=== PATIENT | male | born 1955 | race Caucasian/White ===

== ENCOUNTER → 2018-02-10 07:28 | Outpatient (CLI) | payer BC, SELFPAY ==
--- NOTE | 2018-02-10 08:00 | PET_ITS ---
EXAMINATION: FDG PET CT INDICATIONS: A 62-year-old male with reported history of carcinoma of the lung presenting for restaging examination. COMPARISON EXAMINATION: CT of the chest report dated 01/20/18. INDEX LESION SIZE SUV INTERPRETATION Left lower posteromedial lung zone, left lower lobe 15.8 mm (frame 191) 3.2 Fulfills quantitative criteria for viable neoplasm Left mid posterior lung field, left lower lobe (n = 2) 33.9 mm largest (frame 237) 3.6 (max) Fulfills quantitative criteria for viable neoplasm Left upper anterior hemithorax, left upper lobe 31.5 mm (frame 245) 2.4 Fulfills borderline quantitative criteria for viable neoplasm NON-INDEX LESION SIZE SUV INTERPRETATION Left parotid space 5.1 mm (frame 295) 2.3 Quantitative criteria for viable neoplasm are not fulfilled, correlation with CT of the neck with intravenous contrast may be of benefit secondary to the quantitative degree of uptake TECHNIQUE: Following the intravenous administration of 14.3 mCi of F-18 deoxyglucose via the right antecubital fossa, multiplanar image acquisitions of the neck, chest, abdomen and pelvis to level of mid thigh, obtained at one hour post radiopharmaceutical administration contemporaneously interpreted with the current CT of the neck, chest, abdomen and pelvis to level of mid thigh, dated 02/10/[address] of the chest report dated 01/20/18 reveal: SERUM GLUCOSE LEVEL: 84 mg/dl. HEIGHT: 73 inches. WEIGHT: 231 lbs. FINDINGS: 1. A nodular focus of enhanced glucose metabolism is defined in the left lower medial hemithorax pulmonary parenchyma, left lower lobe generating a calculated maximum standard uptake value of 2.3. The maximal axial diameter of the corresponding parenchymal density on review of CT of the thorax dated 02/10/18 is 15.8 mm (transverse). 2. Heterogeneous increased radiopharmaceutical concentration is defined in the left mid posterior hemithorax pulmonary parenchyma, left lower lobe in two separate locations, nodular presentations generating a calculated maximum standard uptake value of 3.6. The maximal axial diameter of the largest individual metabolic, morphologic abnormality is 33.9 mm (transverse). 3. There is a focus of increased glucose concentration visualized in the left upper anterior hemithorax pulmonary parenchyma, left upper lobe generating a calculated maximum standard uptake value of 2.4. Borderline quantitative criteria for viable neoplasm are fulfilled. The maximal axial diameter of the corresponding parenchymal density on review of CT of the thorax dated 02/10/18 is 31.5 mm (AP). 4. Normal physiologic distribution of the radiopharmaceutical is apparent in the hepatic (3.0) and splenic parenchyma, both renal units, bladder and visualized intestinal tract. There is uniform distribution of the radiopharmaceutical concentration compared on the cerebellar hemispheres and cerebral cortex. Diffuse intestinal tract activity is noted throughout all four quadrants of the abdominal-pelvic retroperitoneum, mesentery consistent with normal physiologic distribution of the radiopharmaceutical. Asymmetric increased glucose concentration is observed in the left parotid space generating a calculated maximum standard uptake value of 2.3. The maximal axial diameter of the metabolic, morphologic abnormality on review of CT of the neck dated 02/10/18 is 5.[address] findings are as follows. CHEST: There are no additional parenchymal densities-nodules noted in the right-left hemithorax manifesting quantitatively significant increased glucose metabolism. Coronary arterial calcification is observed. Atherosclerotic calcification is defined in the thoracic aorta without evidence of dilatation, aneurysm formation. Scattered mediastinal and bilateral axillary soft tissue densities are non-glucose avid. ABDOMEN AND PELVIS: Atherosclerotic calcification is defined in the abdominal aorta without evidence of dilatation, aneurysm formation. Pelvic arterial calcification is observed. Fat-containing bilateral inguinal hernias are noted. Right-left inguinal soft tissue densities are ametabolic. SKELETAL: Degenerative changes defined in the cervical, thoracic and lumbar spine demonstrate no evidence for glucose hypermetabolism. Diffuse demineralization is demonstrated. PET/PET/CT Tumor Base -Thigh Subs IMPRESSION: 1. ABNORMAL EXAMINATION INDICATIVE OF MALIGNANT VIABLE NEOPLASM. 2. Increased glucose concentration demonstrated in several locations within the left lower lobe fulfills quantitative criteria for viable neoplasm. (Garcia et al, Annals of Internal Medicine, 138:724, 2003). 3. Facilitated glucose uptake manifest in the left upper anterior lung zone, left upper lobe fulfills borderline quantitative criteria for viable neoplasm. 4. The increase in fluorine labeled glucose concentration observed in the left parotid space may be further investigated with CT of the neck with intravenous contrast secondary to the quantitative degree of uptake. Electronic Signature Meet Ellis D.O. Electronically Signed: Meet Ellis DO at 19:25 EDT Tel , Service support ,
== END ==
PROVIDERS: Family Provider Family Medicine; PCP Family Medicine; Visit Provider Internal Medicine Hematology & Oncology
DX: C34.92 Malignant neoplasm of unspecified part of left bronchus or lung (principal); C77.1 Secondary and unspecified malignant neoplasm of intrathoracic lymph nodes; R91.8 Other nonspecific abnormal finding of lung field
CPT/HCPCS: 78815; A9552; A4216

== ENCOUNTER → 2018-07-28 07:35 | Outpatient (CLI) | payer BC, SELFPAY ==
--- NOTE | 2018-07-28 08:00 | PET_ITS ---
EXAMINATION: FDG PET CT INDICATIONS: A 63-year-old male with reported history of carcinoma of the lung presenting for restaging examination. COMPARISON EXAMINATION: Prior FDG PET study dated 02/10/19. INDEX LESION SIZE SUV INTERPRETATION PERSISTENT: Left lower posteromedial lung field, left lower lobe 21.8 mm (frame 179) compared to 15.8 mm, 02/10/18 5.4 compared to 3.2, 02/10/18 Fulfills quantitative criteria for viable neoplasm, interim metabolic progression NEW: Left infrahilar region 16.8 mm (frame 198) 4.3 Fulfills quantitative criteria for viable neoplasm PERSISTENT: Left mid posterior hemithorax pulmonary parenchyma 30.1 mm (frame 219) compared to 33.9 mm, 02/10/18 2.7 compared to 3.6, 02/10/18 Fulfills quantitative criteria for viable neoplasm, interim metabolic improvement ? quantitative partial metabolic response if applicable NON-INDEX LESION SIZE SUV INTERPRETATION NEW: Right upper hemithorax pulmonary parenchyma, corresponding linear density on CT 07/28/18 3.8 (max) Most consistent with inflammatory process-pneumonitis TECHNIQUE: Following the intravenous administration of 14.25 mCi of F-18 deoxyglucose via the left antecubital fossa, multiplanar image acquisitions of the neck, chest, abdomen and pelvis to level of mid thigh, obtained at one hour post radiopharmaceutical administration contemporaneously interpreted with the current CT of the neck, chest, abdomen and pelvis to level of mid thigh, dated 07/28/18 via coregistration and prior FDG PET study dated 02/10/18 reveal: SERUM GLUCOSE LEVEL: 99 mg/dl. HEIGHT: 73 inches. WEIGHT: 244 lbs. FINDINGS: 1. Redefined increased glucose metabolism is noted in the left lower posteromedial lung field, left lower lobe generating a current calculated maximum standard uptake value of 5.4 compared to 3.2 defined on the FDG PET study dated 02/10/18. The maximal axial diameter of the corresponding parenchymal density on review of CT of the thorax dated 07/28/18 is 21.8 mm (transverse). 2. Newly identified increased FDG uptake is demonstrated in the left infrahilar region rendering a calculated maximum standard uptake value of 4.3. The maximal axial diameter of the corresponding metabolic, morphologic abnormality on review of CT of the thorax dated 07/28/18 is 16.8 mm (transverse). 3. Redemonstrated heterogeneous facilitated radiopharmaceutical concentration is noted in the left upper posteromedial lung field rendering a current calculated maximum standard uptake value of 2.7 compared to 3.6 defined on the FDG PET study dated 02/10/18. The maximal axial diameter of the metabolic, morphologic abnormality on review of CT of the thorax dated 07/28/18 is 30.1 mm (transverse). 4. Several nodular foci of increased glucose metabolism are manifest in the right upper hemithorax pulmonary parenchyma, right upper lobe superimposed on heterogeneous facilitated uptake. The calculated maximum standard uptake value is 3.8. Uptake appears to correlate with primarily linear density on review of CT of the thorax dated 07/28/18. 5. Normal physiologic distribution of the radiopharmaceutical is apparent in the hepatic (3.3/3.0) and splenic parenchyma, both renal units, bladder and visualized intestinal tract. There is uniform distribution of the radiopharmaceutical concentration defined in the visualized cerebellar hemispheres and cerebral cortical structures.? Diffuse intestinal tract activity is noted throughout all four quadrants of the abdominal-pelvic retroperitoneum, mesentery consistent with normal physiologic distribution of the radiopharmaceutical. The prior defined morphologic-anatomic changes noted on CT of the neck, chest, abdomen and pelvis manifest on the FDG PET CT study dated 02/10/18 are essentially unchanged on the present examination. PET/PET/CT Tumor Base -Thigh Subs IMPRESSION: 1. ABNORMAL EXAMINATION INDICATIVE OF MALIGNANT VIABLE NEOPLASM. 2. Increased glucose concentration redemonstrated in the left lower posteromedial lung field, left lower lobe fulfills quantitative criteria for viable neoplasm. (Maria Fernanda et al, Journal of Nuclear Medicine 43:302 P, 2002). 3. Facilitated labeled glucose metabolism newly apparent in the left infrahilar region fulfills quantitative criteria for malignant transformation. (Vishal et al, Journal of Clinical Oncology 16:2142, 1998). 4. Enhanced FDG uptake persistently noted in the left mid posterior lung field, left lower lobe continues to fulfill quantitative criteria for viable neoplasm. 5. Increased radiotracer uptake visualized in the right upper hemithorax pulmonary parenchyma, right upper lobe corresponding to primarily linear density on review of CT of the chest dated 07/28/18 likely represents an inflammatory process-pneumonitis. 6. Overall, compared to the prior FDG PET study dated 02/10/18, there is an apparent mixed response to systemic cytotoxic therapeutic intervention to include overall metabolic progression of defined viable neoplastic disease to include the left lower posteromedial lung zone-left lower lobe, left infrahilar regions. Persistent uptake noted in the left mid posterior lung field, left lower lobe demonstrates an interval quantitative partial metabolic response if applicable. Electronic Signature Meet Ellis D.O. Electronically Signed: Meet Ellis DO at 23:31 EDT Tel , Service support ,
== END ==
PROVIDERS: Family Provider Family Medicine; PCP Family Medicine; Visit Provider Internal Medicine Hematology & Oncology
DX: C34.12 Malignant neoplasm of upper lobe, left bronchus or lung (principal); R91.8 Other nonspecific abnormal finding of lung field; C77.1 Secondary and unspecified malignant neoplasm of intrathoracic lymph nodes
CPT/HCPCS: 78815; A9552

== ENCOUNTER → 2019-03-30 10:59 | Outpatient (REF) | payer BC, SELFPAY | LOC: CVS 10:59 | PROVIDERS: Family Provider Family Medicine; PCP Family Medicine; Referring Provider Physician Assistant Medical; Visit Provider Physician Assistant Medical | DX: R55 Syncope and collapse (principal) | CPT/HCPCS: 93270 ==

== ENCOUNTER → 2019-06-10 08:47 | Outpatient (CLI) | payer BC, SELFPAY ==
[2019-05-20 08:51] VITALS: BMI 32.1
--- NOTE | 2019-06-10 08:49 | ECHOD_ITS ---
Reason For Study: Murmur Procedure Myocardial strain analysis was performed in this exam to aid in the assessment of cardiac function. This was a 2D Doppler, Color Flow transthoracic echocardiogram. Exam performed in department. Left Ventricle Normal LV size. Mild concentric left ventricular hypertrophy. Left ventricular systolic function is normal. The estimated ejection fraction is 60 %. Stage 2 diastolic dysfunction. No regional wall motion abnormalities noted. Right Ventricle Normal RV size. Normal systolic function. Atria The left atrium is mildly enlarged. Normal right atrium. Tricuspid Valve Normal tricuspid valve. Aortic Valve Trisinus/trileaflet aortic valve. Mild focal aortic valve calcification. Peak aortic valve gradient 37 mmHg. Mean aortic valve gradient 18 mmHg. Mild aortic stenosis. Pulmonic Valve Normal pulmonic valve. Great Vessels Normal aortic root. The pulmonary artery is normal size. Normal inferior vena cava. Pericardium/Pleural No pericardial effusion. MMode/2D Measurements & Calculations LVIDd: 5.1 cm IVSd: 1.2 cm LVOT diam: 2.0 cm LVIDs: 3.1 cm LVPWd: 1.2 cm LVOT area: 3.2 cm2 RVDd: 4.1 cm FS: 39.8 % Ao root diam: 3.6 cm LAV(MOD-bp): 59.2 ml LA A4 area: 20.5 cm2 LA dimension: 3.3 cm LAV(MOD-bp) Indexed: 25.5 ml/m2 LAV(MOD-sp2): 67.8 ml LAV(MOD-sp4): 49.7 ml RA A4 area: 19.5 cm2 Time Measurements MV dec time: 0.33 sec Doppler Measurements & Calculations MV E max antonio: 76.8 cm/sec MV V2 max: 99.2 cm/sec MV P1/2t max antonio: 97.3 cm/sec MV A max antonio: 54.2 cm/sec MV max P.9 mmHg MV P1/2t: 102.7 msec MV E/A: 1.4 MV V2 mean: 44.9 cm/sec MV dec slope: 277.4 cm/sec2 MV mean P.0 mmHg MV V2 VTI: 42.4 cm MVA(P1/2t): 2.1 cm2 MVA(VTI): 2.3 cm2 Ao V2 max: 307.2 cm/sec LV V1 max: 132.4 cm/sec SV(LVOT): 99.5 ml Ao max P.8 mmHg LV V1 max P.0 mmHg Ao V2 mean: 198.6 cm/sec LV V1 mean P.2 mmHg Ao mean P.5 mmHg LV V1 mean: 80.4 cm/sec Ao V2 VTI: 72.4 cm LV V1 VTI: 31.0 cm HONG(I,D): 1.4 cm2 HONG(V,D): 1.4 cm2 PA V2 max: 107.9 cm/sec Interpretation Summary Normal LV size. Mild concentric left ventricular hypertrophy. Left ventricular systolic function is normal. The estimated ejection fraction is 60 %. Mild aortic stenosis. Stage 2 diastolic dysfunction. The global longitudinal strain = -21.4 % (normal). Ordering Physician: Vasyl Devlin Referring Physician: MD Mesfin Genaro Performed By: Yayo Ann RCS
== END ==
PROVIDERS: Family Provider Family Medicine; PCP Family Medicine; Referring Provider Internal Medicine Cardiovascular Disease; Visit Provider Internal Medicine Cardiovascular Disease
DX: I35.0 Nonrheumatic aortic (valve) stenosis (principal)
CPT/HCPCS: 93306

== ENCOUNTER → 2019-06-12 08:53 | Outpatient (CLI) | payer BC, SELFPAY ==
[2019-05-20 08:51] VITALS: BMI 32.1
--- NOTE | 2019-06-12 08:55 | CDU_ITS ---
Reason For Study: STENOSIS Rt. Velocities/BP Lt. Velocities/BP Prox CCA 98/25 cm/sec. Prox CCA 93/28 cm/sec. Mid CCA 56/20 cm/sec. Mid CCA 96/28 cm/sec. Dist CCA 41/13 cm/sec. Dist CCA 101/28 cm/sec. Prox ICA 242/64 cm/sec. Prox ICA 101/28 cm/sec. Mid ICA 166/42 cm/sec. Mid ICA 90/31 cm/sec. Dist ICA 116/33 cm/sec. Dist ICA 75/26 cm/sec. Rt. ICA/CCA = 2.5. Lt. ICA/CCA = 1.0. Prox ECA 302/48 cm/sec. Prox ECA 132/23 cm/sec. Rt. Vert. 101/38 cm/sec. Lt. Vert. 54/26 cm/sec. Right Extracranial There is heterogeneous, irregular atherosclerotic plaque noted in the right common carotid artery. There is heterogeneous, irregular atherosclerotic plaque noted in the right internal carotid artery. There is heterogeneous, irregular atherosclerotic plaque noted in the right external carotid artery. Antegrade flow is noted in the right vertebral artery. There is heterogeneous, irregular atherosclerotic plaque noted in the right bulb. Left Extracranial There is heterogeneous, irregular atherosclerotic plaque noted in the left common carotid artery. There is heterogeneous, irregular atherosclerotic plaque noted in the left internal carotid artery. There is heterogeneous, irregular atherosclerotic plaque noted in the left external carotid artery. Antegrade flow is noted in the left vertebral artery. There is heterogeneous, irregular atherosclerotic plaque noted in the left bulb. Procedure Carotid Duplex [id number]. Exam performed in department. Interpretation Summary Moderate (50-69%) stenosis right extracranial internal carotid. Mild (<50%) stenosis left extracranial internal carotid. Flow within the vertebral arteries is antegrade bilaterally. Ordering Physician: Neri Washington Referring Physician: VIANEY PEREZ Performed By: Swati Newman RDCS, RVT
== END ==
PROVIDERS: Family Provider Family Medicine; PCP Family Medicine; Referring Provider Surgery Vascular Surgery; Visit Provider Surgery Vascular Surgery
DX: I65.23 Occlusion and stenosis of bilateral carotid arteries (principal)
CPT/HCPCS: 93880

== ENCOUNTER 2019-08-29 11:58 | Emergency (ER) | payer MEDICARE, OTHER, SELFPAY ==
[2019-06-26 12:50] VITALS: BMI 32.5
[2019-08-29 11:59] VITALS: BP 90/59; PULSE 67; RESP 13; TEMP 36.1; O2SAT 99; BMI 33.2
--- NOTE | 2019-08-29 12:03 | CT_ITS ---
We are attempting to reach an attending provider to discuss findings. An addendum with communication details will be sent when the communication is complete. STUDY: CT BRAIN WITHOUT CONTRAST REASON FOR EXAM: Male, 64 years old. CVA, left sided weakness, unable to move left arm, weakness on left from prior CVA-worse today. RADIATION DOSAGE (If Supplied By Facility): CTDIvol = ( 44.99 ) mGy, DLP = ( 829.85 ) mGycm TECHNIQUE: Transaxial CT imaging of the brain was performed without administration of intravenous contrast material. Individualized dose optimization techniques were used for this CT. COMPARISON: None. FINDINGS: There is cerebral atrophy with widening of the extra-axial spaces and ventricular dilatation. There are areas of decreased attenuation within the white matter tracts of the supratentorial brain, consistent with microvascular disease changes. There is a small area of right frontal encephalomalacia and gliosis, consistent with prior insult. There is no intracranial hemorrhage. There are no findings of an acute ischemic infarction. There is mucoperiosteal inflammatory disease of the paranasal sinuses consistent with mild chronic sinusitis. CT/Brain/Head without Contrast IMPRESSION: Chronic involutional changes of the brain. Chronic right frontal infarct. Electronically Signed: Rosalba Hebert MD at 12:32 EDT Tel , Service support ,
--- NOTE | 2019-08-29 12:03 | EKG12_ITS ---
Test Reason : STROKE ALERT Blood Pressure : / mmHG Vent. Rate : 057 BPM Atrial Rate : 057 BPM P-R Int : 140 ms QRS Dur : 092 ms QT Int : 428 ms P-R-T Axes : 041 067 053 degrees QTc Int : 416 ms Sinus bradycardia with sinus arrhythmia Otherwise normal ECG Confirmed by OLGA SANCHEZ, FAITH ([id number]), newspaper editor GILES WHYTE ([id number]) on 08/31/2019 9:49:50 AM Referred By: JIGNESH Confirmed By:FAITH ESPINOZA MD
[2019-08-29 12:09] LABS: Absolute Lymphocyte Count 1.69 X10^3/uL (0.83-4.51); Absolute Neutrophil Count 7.8 X10^3/uL (2.0-7.7); Basophil# 0.03 X10^3/uL; Basophil% 0.3 % (0-1); Eosinophils% 2.8 % (0-5); Hemoglobin 10.6 g/dL (13.0-16.5); Lymphocyte # 1.69 X10^3/ul (4.0); Lymphocyte % 15.8 % (19-41); Mean Corp Hgb Conc 31.2 g/dL (32-36); Mean Corpuscular Hgb 28.3 pg (27.0-32.0); Mean Corpuscular Volume 90.7 fL (80-94); Monocyte# 0.76 X10^3/uL; Monocyte% 7.1 % (0-10); NRBC Flagged by Analyzer 0 % (0-5); Neutrophil # 7.83 X10^3/uL (2.7-7.7); Neutrophil % 72.9 % (47-70); Platelet Count 245 K/mm3 (150-450); RBC Distribution Width CV 15.4 % (11.6-14.6); RBC Distribution Width SD 50.8 fl (35.1-43.9); Red Blood Count 3.75 M/mm3 (4.6-6.2); White Blood Count 10.7 K/mm3 (4.4-11.0)
--- NOTE | 2019-08-29 12:10 | CM.ED ---
SOCIAL WORK RESPONDED TO STROKE ALERT. PATIENT BROUGHT IN BY FRIEND. PER FRIEND, PATIENT CALLED WHO IS OUT OF TOWN AND DAUGHTER PRIOR TO COMING TO THE HOSPITAL. FRIEND ANTICIPATES DAUGHTER TO ARRIVE SHORTLY. THIS WORKER TO REMAIN AVAILABLE FOR NEEDS. Joie BEJARANO, ELECTRIC ACCOUNTING MACHINE OPERATOR, DATA MANAGEMENT MANAGER.
[2019-08-29 12:14] VITALS: BP 101/64; PULSE 58; RESP 17; O2SAT 99
[2019-08-29 12:16] VITALS: TEMP 36.1; BMI 33.2
[2019-08-29 12:16] LABS: International Normalized Ratio 1.1; Prothrombin Time (Protime)PT. 13.7 SECONDS (11.7-14.9)
[2019-08-29 12:17] LABS: Partial Thromboplast Time 29.3 Seconds (24.1-36.2)
[2019-08-29 12:24] LABS: Anion Gap 6 (5-15); BUN 15 mg/dL (7-18); BUN/Creat Ratio 14.7 RATIO (10-20); Calcium,Total 9.2 mg/dL (8.5-10.1); Chloride 105 mmol/L (98-107); Creatinine, Serum 1.02 mg/dL (0.70-1.30); EST Glomerular Filtration Rate 78 mL/min (>60); Est Glom Filt Rate - Afr Amer 94 mL/min (>60); Estimated Creatinine Clearance 74.55 ml/min; Glucose 114 mg/dL (74-106); Potassium 3.8 mmol/L (3.5-5.1); Sodium Level 139 mmol/L (136-145)
[2019-08-29 12:29] VITALS: BP 101/64; PULSE 57; RESP 16; O2SAT 97
--- NOTE | 2019-08-29 12:35 | ED.DCSUM_ITS ---
History of Present Illness Chief Complaint: Neuro S/Sx Informant: Patient Onset: Today Context: Sudden Onset Current Severity: Moderate Maximum Severity: Moderate Narrative: Patient presents with loss of strength and numbness and tingling in his left arm. He states around 1015 or 1020 this morning he walked to his window. He was standing or looking outside when he became dizzy and fell to the floor. He did not lose consciousness. He states when he tried to get up he noted that his left arm would not work. A friend came and helped him up. Sometime past with no resolution of his left arm symptoms and he was brought to the emergency room. Patient denies any symptoms in his legs. He denies headache. Patient has had prior stroke and had a right carotid endarterectomy in 2007. He takes baby aspirin daily. Past Medical History - Allergies and Home Meds Allergies/Adverse Reactions: Allergies varenicline [From Chantix] Adverse Reaction (Verified 08/29/19 12:24) bad dreams, visions Primary Care Physician: Genaro Toure MD [Primary Care Provider] - Prior records reviewed: Yes Past Medical History: - - Reviewed Smoking Status: Former smoker Review of Systems General: Denies: Chills, Fever Eyes: Denies: Visual changes - bilaterally ENT: Denies: Bilateral ear pain Cardiovascular: Denies: Chest pain, Palpitations Respiratory: Denies: Dyspnea, Cough Gastrointestinal: Denies: Abdominal pain, Nausea, Vomiting, Diarrhea Musculoskeletal: Denies: Extremity Pain Skin: Denies: Rash Neurological: Reports: Weakness, Numbness. Denies: Headache Psych: Denies: Depression, Anxiety Allergy: Denies: Uticaria Physical Exam Vital Signs/Narrative: Vital Signs Temp Pulse Resp BP Pulse Ox 08/29/19 12:16 97 F L 08/29/19 12:14 58 L 17 101/64 99 08/29/19 11:59 97 F L 67 13 90/59 L 99 Inital Vital Signs reviewed: Yes General: Well nourished, Well developed Head: Normocephalic Eyes: Perrl, EOMI ENT: Moist mucous membranes Cardiovascular: Regular rhythm, Bradycardia Respiratory: No distress, CTA bilaterally, Chest nontender Abdomen: Soft, Nontender, Hypoactive bowel sounds Extremities: Nontender Skin: Normal color, No rash Neurological: Alert, Oriented x3, - - Patient has weakness of the left arm and is unable to lift it off of the bed. He has weak hand grasp on the left side. Decreased sensation is noted to the left arm. Normal neuro exam of his legs as noted. He has a slight facial droop. Psychological: Normal affect Diagnostic/Tx/Re-eval Impressions Brain CT 08/29/19 12:03 IMPRESSION: Chronic involutional changes of the brain. Chronic right frontal infarct. Electronically Signed: Rosalba Hebert MD at 12:32 EDT Tel , Service support , 08/29/19 12:03 Brain/Head without Contrast [CT] Stat Chest 1 View [RAD] Stat Laboratory Results 08/29/19 08/29/19 08/29/19 12:01 12:01 12:01 WBC 10.7 RBC 3.75 L Hgb 10.6 L Hct 34.0 L MCV 90.7 MCH 28.3 MCHC 31.2 L RDW Std Deviation 50.8 H RDW Coeff of [place] 15.4 H Plt Count 245 MPV 9.0 Immature Gran % (Auto) 1.100 H Neut % (Auto) 72.9 H Lymph % (Auto) 15.8 L [place] % (Auto) 7.1 Eos % (Auto) 2.8 Baso % (Auto) 0.3 Absolute Neuts (auto) 7.8 H Absolute Lymphs (auto) 1.69 Nucleated RBC % 0 PT 13.7 INR 1.1 APTT 29.3 Sodium 139 Potassium 3.8 Chloride 105 Carbon Dioxide 28.0 Anion Gap 6 BUN 15 Creatinine 1.02 Estim Creat Clear Calc 74.55 Est GFR (MDRD) Af Amer 94 Est GFR (MDRD) Non-Af 78 BUN/Creatinine Ratio 14.7 Glucose 114 H Calcium 9.2 Troponin I 0.321 H - EKG Initial EKG Interpretation: Sinus Bradycardia - Sinus bradycardia [address] change. - Medical Decision Making Patient presents approximately an hour and a half after symptom onset. Stroke she was immediately called. Patient was emergently taken to CT scan. I spoke with [facility] neurology via computer as he examined the patient. Neurologist discussed pros and cons of TPA and patient agreed. TPA is being mixed and given at this time. Family would prefer to go to [facility] as patient's prior records are all through [facility]. I spoke with Dr. Pisano and has been accepted at [facility]. ED Disposition - Plan for ED Patient: Disposition: [facility] Diagnosis: CVA (cerebral vascular accident) Referrals: Genaro Toure MD [Primary Care Provider] -
--- NOTE | 2019-08-29 12:36 | RAD_ITS ---
STUDY: X-RAY CHEST REASON FOR EXAM: Male, 64 years old. Sudden onset of bilateral legs and arms weakness and facial droop. TECHNIQUE: Single AP portable view of the chest. COMPARISON: Prior comparison studies are not available for review at this time. FINDINGS: There is opacity in the left lung apex with loss of volume of the left lung and elevation of the left hilum. The right lung is essentially clear. There may be trace of left pleural effusion. Normal size heart. There is mild prominence of the right paratracheal region. Normal visualized pulmonary arteries. Normal visualized aortic arch and descending thoracic aorta. The thoracic spine is obscured by the mediastinum. Normal visualized ribs, clavicles, and shoulders. There is no demonstrated abnormality of the visualized soft tissue structures of the upper abdomen. RAD/Chest 1 View IMPRESSION: 1. Left apical opacity which could be due to tumor or focal pleural thickening. 2. Comparison with previous examinations is recommended. Electronically Signed: Bo Troncoso MD at 13:15 EDT Tel , Service support ,
[2019-08-29 12:44] VITALS: BP 96/62; PULSE 57; RESP 21; TEMP 36.6; O2SAT 96
[2019-08-29 12:59] VITALS: BP 102/70; PULSE 57; RESP 20; TEMP 36.6; O2SAT 100
--- NOTE | 2019-08-29 13:03 | ED.RN ---
PT'S REQUESTED PT TRANSFER TO [facility], DECLINED TRANSFER TO [facility] DESPITE TRANSPORTATION ALREADY ARRANGED.
--- NOTE | 2019-08-29 13:05 | ED.RN ---
TPA TRANSFERRED TO [facility] AT 1305. REPORT GIVEN ON TPA ADMIN, START TIME, BOLUS TIME, VITAL SIGNS. FLUSH FOR TPA GIVEN TO [facility].
[2019-08-29 15:46] LABS: Bedside Glucose 106 mg/dL (70-110)
== END 2019-08-29 13:19 | disposition short-term general hospital (02) ==
PROVIDERS: Emergency Provider Emergency Medicine; Family Provider Family Medicine; PCP Family Medicine
DX: I69.354 Hemiplegia and hemiparesis following cerebral infarction affecting left non-dominant side (principal); R29.810 Facial weakness; Z79.82 Long term (current) use of aspirin; Z87.891 Personal history of nicotine dependence
CPT/HCPCS: 51702; 70450; 71045; 80048; 82962; 84484; 85025; 85610; 85730; 93005; 99285; J2997; J7030; A4216

== ENCOUNTER → 2019-09-10 16:53 | Outpatient (CLI) | payer MEDICARE, OTHER, SELFPAY ==
[2019-09-10 15:15] VITALS: BMI 34.0
[2019-09-10 17:31] LABS: BNP,B-Type NATRIURETIC PEPTIDE 196.1 pg/mL (0-100)
== END ==
PROVIDERS: Family Provider Family Medicine; PCP Family Medicine; Referring Provider Physician Assistant Medical; Visit Provider Physician Assistant Medical
DX: R06.09 Other forms of dyspnea (principal)
CPT/HCPCS: 36415; 83880

== ENCOUNTER → 2019-11-09 06:17 | Outpatient (CLI) | payer MEDICARE, OTHER, SELFPAY ==
[2019-10-22 14:54] VITALS: BMI 34.7
--- NOTE | 2019-11-09 06:18 | ECHOD_ITS ---
Reason For Study: DYSPNEA/SOB Procedure This was a 2D Doppler, Color Flow transthoracic echocardiogram. Exam performed in department. Left Ventricle Normal LV size. Mild concentric left ventricular hypertrophy. Left ventricular systolic function is normal. The estimated ejection fraction is 70 %. No regional wall motion abnormalities noted. Right Ventricle Normal RV size. Normal systolic function. Atria Normal left atrium. Normal right atrium. Mitral Valve Normal mitral valve. Mild (1+) eccentric mitral valve insufficiency. Tricuspid Valve Normal tricuspid valve. Aortic Valve Trisinus/trileaflet aortic valve. Moderate focal aortic valve calcification. Peak aortic valve gradient 58 mmHg. Mean aortic valve gradient 33 mmHg. Mild to moderate aortic stenosis. Calculated aortic valve area (continuity equation) is 1.4 cm2. Pulmonic Valve The pulmonic valve is not well visualized. Great Vessels Normal aortic root. The pulmonary artery is normal size. Normal inferior vena cava. Pericardium/Pleural Small pericardial effusion. Medication Diluted definity 4ml given slow IV push to enhance endocardial definition. MMode/2D Measurements & Calculations LVIDd: 4.6 cm IVSd: 1.2 cm LVOT diam: 2.0 cm LVIDs: 3.2 cm LVPWd: 1.3 cm RVDd: 3.5 cm FS: 31.6 % LVOT area: 3.1 cm2 Ao root diam: 3.2 cm LAV(MOD-bp): 63.7 ml LVAd ap4: 39.0 cm2 LAV(MOD-bp) Indexed: 28.2 ml/m2 EDV(MOD-sp4): 136.7 ml LAV(MOD-sp2): 74.1 ml EDV(sp4-el): 140.8 ml LAV(MOD-sp4): 54.3 ml LVAs ap4: 21.1 cm2 ESV(MOD-sp4): 44.2 ml ESV(sp4-el): 47.0 ml EF(MOD-sp4): 67.7 % EF(sp4-el): 66.6 % SV(MOD-sp4): 92.5 ml SV(sp4-el): 93.8 ml LA A4 area: 20.1 cm2 LA dimension(2D): 4.0 cm RA A4 area: 17.3 cm2 Time Measurements MV dec time: 0.22 sec Doppler Measurements & Calculations MV E max juan m: 85.0 cm/sec Lat Peak E' Juan M: 13.5 cm/sec Med Peak E' Juan M: 10.9 cm/sec MV A max juan m: 95.3 cm/sec E/E' lat: 6.3 E/E' med: 7.8 MV E/A: 0.89 Ao V2 max: 381.2 cm/sec LV V1 max: 171.1 cm/sec SV(LVOT): 128.3 ml Ao max P.2 mmHg LV V1 max P.7 mmHg Ao V2 mean: 268.2 cm/sec LV V1 mean P.7 mmHg Ao mean P.1 mmHg LV V1 mean: 107.1 cm/sec Ao V2 VTI: 88.1 cm LV V1 VTI: 40.8 cm HONG(I,D): 1.5 cm2 HONG(V,D): 1.4 cm2 PA V2 max: 115.7 cm/sec Interpretation Summary Normal LV size. Mild concentric left ventricular hypertrophy. Left ventricular systolic function is normal. The estimated ejection fraction is 70 %. Mild to moderate aortic stenosis. Calculated aortic valve area (continuity equation) is 1.4 cm2. Mean aortic valve gradient 33 mmHg. Contrast injection was performed. Ordering Physician: Nathaly Powell/Vasyl Devlin Referring Physician: VIANEY PEREZ Performed By: Kaye Lopez RDCS
--- NOTE | 2019-11-09 17:44 | STRESSREP ---
Stress Test Report Pharmacologic myocardial perfusion stress test. 64-year-old man with a history of previous cerebrovascular accident and abnormal troponin. Stress protocol: Resting EKG demonstrates normal sinus rhythm with a rate of 56 bpm normal intervals are noted. 0.4 mg of regadenoson was infused per usual protocol followed up intravenous saline flush injection continuous EKG monitoring was performed. The maximum heart rate attained was 103 bpm which was 66% of maximum predicted heart rate the maximum workload was 1 metabolic equivalent. At rest there were no ST or T wave changes noted to suggest abnormal flow reserve at peak infusion nonspecific ST-T wave changes were noted with no meet the criteria for abnormal flow reserve. The resting blood pressure was 118/82 final blood pressures 116/76. Myocardial perfusion protocol. 14.8 mCi of technetium 99m sestamibi was injected at rest. 0.4 mg of regadenoson was infused per usual protocol at peak infusion 44.5 mCi of technetium 99m sestamibi was injected stress images were obtained stress and rest images were reconstructed in comparing the short axis vertical long horizontal long axis. Gated images were also obtained Perfusion SPECT analysis: Review of the images demonstrate normal uptake of tracer noted in all areas of myocardium the resting images similarly demonstrate normal uptake of tracer noted in all areas of the myocardium no reversibility is noted suggest ischemia no previous infarct is noted. Gated SPECT analysis: The gated ejection fraction is noted to be 66%. Conclusion: Normal pharmacologic myocardial perfusion stress test. Preserved ejection fraction.
== END ==
PROVIDERS: Family Provider Family Medicine; PCP Family Medicine; Referring Provider Physician Assistant Medical; Visit Provider Physician Assistant Medical
DX: R06.09 Other forms of dyspnea (principal); R06.02 Shortness of breath; I31.3 Pericardial effusion (noninflammatory); I21.4 Non-ST elevation (NSTEMI) myocardial infarction
CPT/HCPCS: 78452; 93017; 93306; A9500; Q9957; A4216; C8929; J2785

== ENCOUNTER → 2019-11-24 08:26 | Outpatient (CLI) | payer MEDICARE, OTHER, SELFPAY ==
[2019-11-11 07:46] VITALS: BMI 33.7
[2019-11-24 08:30] VITALS: PULSE 64; PULSE 72; PULSE 79; PULSE 82; PULSE 87; PULSE 88; PULSE 91; O2SAT 89; O2SAT 90; O2SAT 94; O2SAT 97
--- NOTE | 2019-11-25 14:25 | PCM.PSN.6M ---
PSN 6 Minute Walk Test - 6 Minute Walk Test 6 Minute Walk Test: 6 Minute Walk Test PSN:6-Minute Walk Test Start: 11/24/19 08:55 Freq: Status: Active Protocol: RESP.6MINW Document 11/24/19 08:30 JLA (Rec: 11/24/19 08:57 JLA [id number]) 6 Minute Walk Test Date Performed 11/24/19 Time Performed 08:30 Height 6 ft 1 in Weight: 230 lb Weight in Pounds 230.[address]: Brooks Nash Assistive device used: None Pre-test Oxygen Delivery Method Room Air Pulse Ox (%) 94 Pulse Rate (60-100 beats/min) 64 Dyspnea Jamie Scale (0-10) 0 Exertion Jamie Scale (6-20) 6 1st minute Oxygen Delivery Method Room Air Pulse Ox (%) 90 Pulse Rate (60-100 beats/min) 82 2nd minute Oxygen Delivery Method Room Air Pulse Ox (%) 89 Pulse Rate (60-100 beats/min) 87 3rd minute Oxygen Delivery Method Room Air Pulse Ox (%) 90 Pulse Rate (60-100 beats/min) 79 4th minute Oxygen Delivery Method Room Air Pulse Ox (%) 89 Pulse Rate (60-100 beats/min) 82 5th minute Oxygen Delivery Method Room Air Pulse Ox (%) 89 Pulse Rate (60-100 beats/min) 88 6th minute Oxygen Delivery Method Room Air Pulse Ox (%) 90 Pulse Rate (60-100 beats/min) 91 Dyspnea Jamie Scale (0-10) 0 Exertion Jamie Scale (6-20) 11 Post-test Oxygen Delivery Method Room Air Pulse Ox (%) 97 Pulse Rate (60-100 beats/min) 72 Full Laps Walked 17 Partial Lap, Number of Tiles Walked 0 Total Distance Walked (ft) 1003 - Interpretation Interpretation: The patient ambulated 1003 feet over the course of 6 minutes beginning on room air without assistive devices or breaks. Pretesting oxygen saturation was noted to be 94% on room air. With ambulation, the christian oxygen saturation was 89%. This represents a significant exertional oxygen desaturation, consistent with a pulmonary limitation to exercise tolerance. - Recommendations Recommendations: There is no indication for the use of supplemental oxygen at this time. However, close interval follow-up was recommended, given the degree of oxygen desaturation noted during this study.
== END ==
PROVIDERS: Family Provider Family Medicine; PCP Family Medicine; Referring Provider Internal Medicine Critical Care Medicine; Visit Provider Internal Medicine Critical Care Medicine
DX: J44.9 Chronic obstructive pulmonary disease, unspecified (principal)
CPT/HCPCS: 94618

== ENCOUNTER → 2019-11-26 06:56 | Outpatient (CLI) | payer MEDICARE, OTHER, SELFPAY ==
[2019-11-11 07:46] VITALS: BMI 33.7
--- NOTE | 2019-11-27 10:25 | PFT ---
INTRODUCTION: The patient is a 64-year-old male that presents for pulmonary function studies secondary to a diagnosis of COPD. Respiratory therapy reports good patient effort. Bronchodilators were used during testing. INTERPRETATION: Forced expiration spirometry demonstrates the presence of a severe large airways obstructive ventilatory defect. There was a significant response to aerosolized bronchodilators, based upon change noted in FEV1. Spirograms are of good quality and do not plateau indicating slow emptying of the lungs. Body plethysmography was performed and reveals lung volumes to be within normal limits. Diffusing capacity by single breath CO is reduced at 49% of predicted. IMPRESSION: Partially reversible severe large airways obstructive ventilatory defect with preserved lung volumes and symmetric reduction in diffusing capacity.
== END ==
PROVIDERS: Family Provider Family Medicine; PCP Family Medicine; Referring Provider Internal Medicine Critical Care Medicine; Visit Provider Internal Medicine Critical Care Medicine
DX: J44.9 Chronic obstructive pulmonary disease, unspecified (principal)
CPT/HCPCS: 94060; 94726; 94729

== ENCOUNTER 2019-12-29 09:30 | Outpatient (RCR) | payer MEDICARE, OTHER, SELFPAY ==
[2019-11-11 07:46] VITALS: BMI 33.7
--- NOTE | 2019-12-22 10:20 | HP.OTEVAL ---
Patient's Visit Information ANTONIETA CARR is a 64 year old M, referred to Occupational Therapy by Francisco Javier Ortiz, MIKE-C, with a diagnosis of left brachial plexopathy. Date of Evaluation: 12/21/19 Occupational Therapist: Nathaly Dillon, LIAM/Carmen, CHT - Subjective Subjective: This 64-year-old male was seen for OT eval with dx. of left brachial plexopathy. Pt states he passed out and was on the floor for about an hour. He states he passed out by the stairs and his left arm was hanging down the step. Pt stated once he woke up, he couldn't move his arm. Pt states multiple test were run and determined to have brachial plexopathy. pt states he has noticed some increase in ROM but still struggles with left shoulder ROM and strength. pt would like to return to PLOF. pt states he has hx of lung cancer- radiation 4 years ago with radiation tam to esophagus and lung. - Pain left shoulder 2 Pain Intensity Range: 0, 4 - ROM Shoulder: right WNL left 50 Elbow: right WNL left WNL Forearm: right/left WNL Wrist: right WNL left note ROM Comments: pt demo with minimal shoulder flex/abduction - Strength Shoulder: right 5/5 left 2-/5 Elbow: right 5/5 left 3-/5 Forearm: right 5/5 left 3-/5 Wrist: right 5/5 left 3-/5 [employer]: right 110# left 75# Lateral Pinch: right 20# left 16# Tripod Pinch: right 20# left 16# Strength Comments: pt demo with decrease functional strength of left UE - Sensation Sensation Comments: denies - Quick DASH-Disab of Arm,Shoulder& Hand Quick DASH Score: 13.6350 - Goals Goal:: PT will demo a increase in left UU MMT by 1 MM grade to increase pts IND. with ADLs and IADLS. Goal:: Pt will demo shoulder ROM WFL to increase ind. with ADls and IADLS. Goal:: pt will demo understanding of HEP to mtg his left UE recovery by d/c - Rehabilitation General Assessment: pt demo a dcrease in left UE functional ROM limiting use of bilateral UE with ADls and IADls. pt would benefit from skilled OT services 2x week for 2weeks to develop and implement POC. Today pt was ed. on initiation of AAROM pt given handout and demo understanding. Rehabilitation Potential: Fair - Anticipated Interventions Anticipated Interventions: A/AAROM/PROM, Strengthening, Home Program - Visit Plan Frequency: 2x /Week Duration: 2 Weeks TEXT: Thank you for the opportunity to evaluate your patient. For Medicare and Medicare HMO plans, please review the plan of care and approve it. It will need to be FAXED BACK to us at [phone] for Medicare purposes. Please let me know if there are questions or concerns regarding this plan of care. Physician Signature: Date:
--- NOTE | 2020-04-05 12:24 | HP.OT.NRP ---
ANTONIETA CARR was seen in my office for initial evaluation on 12/21/19. The following Plan of Care was established for this patient: Initial Frequency: 2x /Week Initial Duration: 2 Weeks Plan: see pt in 4 weeks Anticipated Interventions: A/AAROM/PROM, Strengthening, Home Program This patient was last seen in our office 12/29/19. Pertinent comments regarding their Occupational therapy will appear below: pt was seen for 2 OT visit. pt was to return in 4 weeks for new measurments to see how pt was recovering. pt has not scheduled any further apts. pt d/c at this time due to time lapse in skilled services. At this point I will be discontinuing this patient from occupational therapy. I would be happy to see this patient again in the future if found appropriate by the physician. Thank you! Nathaly Dillon, OTR/L, CHT
== END 2019-12-29 19:00 | disposition home or self-care (01) ==
LOC: OT 09:30
PROVIDERS: PCP Family Medicine
DX: G54.0 Brachial plexus disorders (principal)
CPT/HCPCS: 97110; 97166

== ENCOUNTER → 2020-03-17 14:01 | Outpatient (CLI) | payer MEDICARE, OTHER, SELFPAY ==
[2019-12-30 06:44] VITALS: BMI 31.1
--- NOTE | 2020-03-17 14:03 | CT_ITS ---
STUDY: CTA HEAD AND NECK WITH CONTRAST REASON FOR EXAM: Male, 64 years old. Bilateral carotid stenosis, prior right carotid endarterectomy and stent. Hx lung cancer with radiation and amp; chemotherapy. RADIATION DOSAGE (If Supplied By Facility): CTDIvol = ( 29.82 ) mGy, DLP = ( 1711.09 ) mGycm TECHNIQUE: CT angiography was performed with a multi-detector CT scanner. Data acquisition was obtained from the skull base through the vertex following intravenous administration of 100mL Isovue 370. MIP images were reconstructed from the axial data set. Post-processing of the angiographic images was performed, with multiplanar reformation and 3D reconstruction. Individualized dose optimization techniques were used for this CT. COMPARISON: Carotid duplex ultrasound June 12, 2019. Report from that study not available for review at the time of this dictation noncontrast CT brain August 29, 2019. FINDINGS: There is at least segmental consolidation/collapse in the dorsal medial left upper lobe and, to a much lesser degree, in the medial right upper lobe. Extravascular/extrabronchial soft tissue structures of the left hilum are difficult to separate from this airspace disease. There are multilevel degenerative changes of the cervical spine. BRAIN: There is calcific plaquing with less than 50% stenosis in the bilateral vertical petrous segments of the carotid arteries. There is calcified plaque formation of the right cavernous carotid artery, with a mild stenosis (less than 50%). There is calcified plaque formation of the left cavernous carotid artery, with a mild stenosis (less than 50%). Normal A1 segment of the right anterior cerebral artery. Normal A1 segment of the left anterior cerebral artery. Normal intact anterior communicating artery (ACOM). Normal bilateral A2 segments of the anterior cerebral arteries. Normal M1 and M2 segments of the right middle cerebral artery, with a normal M1 bifurcation. Normal M1 and M2 segments of the left middle cerebral artery, with a normal M1 bifurcation. There is non-visualization of the right posterior communicating artery (PCOM). There is non-visualization of the left posterior communicating artery (PCOM). Normal bilateral vertebral arteries. Normal basilar artery with a normal basilar bifurcation. The visualized bilateral superior cerebellar (SCA) arteries are normal. Normal P1, P2 and visualized P3 segments of the bilateral posterior cerebral arteries. There is no demonstrated aneurysm of the [place]. There is focal low-density consistent with encephalomalacia in the confluence of the right frontoparietal periventricular white matter at the level of the central gyrus. AORTIC ARCH: There is atherosclerotic calcific plaque formation of the aortic arch and great vessels arising from the aortic arch, without a hemodynamically significant stenosis. 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 Incidental note of mild to moderate calcific atherosclerotic narrowing of the takeoff of the right subclavian artery. RIGHT CAROTID ARTERIES: There is short segment, eccentric calcific atherosclerotic plaquing of the mid right common carotid artery (CCA) without significant stenosis. There is a patent endovascular stent extending from the distal common carotid artery through the carotid bulb and into the proximal right internal carotid (ICA) artery without a hemodynamically significant stenosis. Minor narrowing/kinking of the internal carotid artery at the superior margin of the stent, otherwise normal visualized cervical portion of the right internal carotid artery. 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 LEFT CAROTID ARTERIES: Mild atherosclerotic ostial stenosis of the left common carotid artery (CCA). There is also eccentric mixed calcific and fatty atherosclerotic plaquing in its mid segment with less than 50% narrowing. There is densely calcific plaquing along the posterolateral wall left common carotid bulb, but no significant stenosis. There is continuation of calcific atherosclerotic plaque formation through the origin of the left internal carotid artery with an estimated stenosis of 50-69% stenosis 2 cm beyond the vessel takeoff. Otherwise, normal visualized cervical portion of the left internal carotid artery. Normal origin of the left external carotid artery (ECA). VERTEBRAL ARTERIES: There is 50-69% calcific atherosclerotic stenosis at takeoff of the right vertebral artery. There are additional focal sites of calcific plaquing in the cervical segment of the right vertebral artery without significant narrowing. Additional plaquing and tapering is seen near the level of the foramen magnum. On the left, there is 60-80% ostial stenosis of the vertebral artery, followed by mild narrowing due to kinking. Additional focal sites of calcific plaquing are seen in the cervical segment of the left vertebral artery without significant narrowing. CT/CTA Head AND Neck W/ Contrast IMPRESSION: 1. Changes of possible prior right carotid endarterectomy. Now seen is a patent endovascular stent extending from the common carotid artery through the bifurcation into the proximal internal carotid artery. There is no significant internal carotid artery stenosis. 2. 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 3. Atherosclerotic calcific plaquing at the left carotid artery bifurcation with 50-69% internal carotid artery stenosis. 4. 50-69% atherosclerotic stenosis of the takeoff of the patent right vertebral artery. 5. 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 The left vertebral artery is otherwise patent. 6. No hemodynamically significant stenosis of the intracranial arterial circulation. No demonstrated aneurysm. 7. Segmental collapse/consolidation in the dorsomedial left upper lobe and, to a lesser degree, in the medial right upper lobe. 8. Old focal infarct in the right frontoparietal periventricular white matter at the level of the central gyrus. Electronically Signed: Bereket Alvarez MD at 17:43 EDT , Service support ,
[2020-03-17 14:26] LABS: CREATININE FINGERSTICK 1.1 mg/dL (0.70-1.30)
== END ==
PROVIDERS: PCP Family Medicine; Referring Provider Radiology Diagnostic Radiology; Visit Provider Radiology Diagnostic Radiology
DX: I65.23 Occlusion and stenosis of bilateral carotid arteries (principal)
CPT/HCPCS: 70496; 70498; Q9967

== ENCOUNTER → 2020-05-06 08:55 | Outpatient (CLI) | payer MEDICARE, OTHER, SELFPAY ==
[2020-04-13 09:46] VITALS: BMI 31.4
--- NOTE | 2020-05-06 08:56 | ECHOCS_ITS ---
Reason For Study: MURMUR Procedure This was a 2D Doppler, Color Flow transthoracic echocardiogram. The study was technically difficult. Due to poor accoustic windows. Contrast injection was performed. Exam performed in department. Left Ventricle Normal LV size. Left ventricular systolic function is normal. The estimated ejection fraction is 65 %. Diastolic function is indeterminate. No regional wall motion abnormalities noted. Right Ventricle Normal RV size. Normal systolic function. Atria The left atrium is mildly enlarged. Normal right atrium. No doppler evidence for ASD. Mitral Valve There is no mitral annular calcification. Normal mitral valve. Trivial mitral valve insufficiency. Tricuspid Valve Normal tricuspid valve. Trivial tricuspid valve insufficiency. Unable to estimate RV systolic pressure/pulmonary artery pressure due to technically difficult study. Aortic Valve Trisinus/trileaflet aortic valve. Mild diffuse aortic valve thickening. Moderate diffuse aortic valve calcification. Moderate aortic stenosis. Pulmonic Valve The pulmonic valve is not well visualized. Great Vessels Normal sized aortic root. Calcified aortic root. Pericardium/Pleural No pericardial effusion. Medication 22 gauge I.V. with prn adaptor inserted into right arm. Diluted definity 4.0ml given slow IV push to enhance endocardial definition. MMode/2D Measurements & Calculations LVIDd: 5.4 cm IVSd: 1.3 cm LVOT diam: 2.4 cm LVIDs: 3.3 cm LVPWd: 1.1 cm RVDd: 4.4 cm FS: 39.4 % LVOT area: 4.5 cm2 Ao root diam: 3.5 cm LAV(MOD-bp): 85.6 ml LA A4 area: 26.3 cm2 LAV(MOD-bp) Indexed: 36.9 ml/m2 LAV(MOD-sp2): 81.2 ml LAV(MOD-sp4): 87.4 ml LA dimension(2D): 4.2 cm Time Measurements MV dec time: 0.20 sec Doppler Measurements & Calculations MV E max juan m: 91.4 cm/sec Lat Peak E' Juan M: 8.8 cm/sec Med Peak E' Juan M: 11.9 cm/sec MV A max juan m: 62.3 cm/sec E/E' lat: 10.4 E/E' med: 7.7 MV E/A: 1.5 Ao V2 max: 394.9 cm/sec LV V1 max: 159.0 cm/sec SV(LVOT): 152.8 ml Ao max P.4 mmHg LV V1 max P.1 mmHg Ao V2 mean: 282.0 cm/sec LV V1 mean P.3 mmHg Ao mean P.9 mmHg LV V1 mean: 109.2 cm/sec Ao V2 VTI: 82.5 cm LV V1 VTI: 34.3 cm HONG(I,D): 1.9 cm2 HONG(V,D): 1.8 cm2 PA V2 max: 110.8 cm/sec Interpretation Summary The study was technically difficult. Contrast injection was performed. Left ventricular systolic function is normal. The estimated ejection fraction is 65 %. The left atrium is mildly enlarged. Trivial mitral valve insufficiency. Trivial tricuspid valve insufficiency. Moderate aortic stenosis. Calcified aortic root. Unable to estimate RV systolic pressure/pulmonary artery pressure due to technically difficult study. Diastolic function is indeterminate. Ordering Physician: Nathaly Powell Referring Physician: Genaro Toure Performed By: Haven Rubi, PRUDENCE, RVT
== END ==
PROVIDERS: PCP Family Medicine; Referring Provider Physician Assistant Medical; Visit Provider Physician Assistant Medical
DX: I35.0 Nonrheumatic aortic (valve) stenosis (principal); R01.1 Cardiac murmur, unspecified; Z98.890 Other specified postprocedural states
CPT/HCPCS: 93306; Q9957; A4216; C8929

== ENCOUNTER 2020-06-28 09:55 | Emergency (ER) | payer MEDICARE, OTHER, SELFPAY ==
[2020-04-13 09:46] VITALS: BMI 31.4
[2020-06-28] VITALS (15 sets, daily range): BP systolic 112–153; BP diastolic 81–112; PULSE 74–163; RESP 16–26; TEMP 36.4–37; O2SAT 94–100; BMI 30.9
--- NOTE | 2020-06-28 10:07 | EKG12_ITS ---
Test Reason : SOB Blood Pressure : / mmHG Vent. Rate : 075 BPM Atrial Rate : 075 BPM P-R Int : 130 ms QRS Dur : 094 ms QT Int : 360 ms P-R-T Axes : 031 056 135 degrees QTc Int : 402 ms Normal sinus rhythm Nonspecific T wave abnormality Abnormal ECG Confirmed by TERRENCE SANCHEZ, LAKESHA ([id number]), sound editor GILES WHYTE ([id number]) on 06/30/2020 10:52:04 AM Referred By: KAYLA Confirmed By:LAKESHA OCAMPO MD
--- NOTE | 2020-06-28 10:22 | ED.VIS.GEN ---
History of Present Illness Chief Complaint: Shortness of Breath Informant: Patient, - - Oncologist Narrative: Patient is a 64-year-old male who presents to the emergency department from home for shortness of breath. He states that this has gotten progressively worse since this past Saturday. He did have a CT scan of his chest performed by his oncologist at the onset of his symptoms. The CT scan showed bilateral pleural effusions. He also had an interval increase in size of a pericardial effusion. There was some groundglass opacities in the right lung. The left upper lobe mass has remained unchanged. It has gone through multiple medications of chemotherapy. His last dose was 2 weeks ago. He has developed a slight cough. This is been nonproductive. No fevers or chills. No known sick contacts. Denies any leg swelling or calf pain. No history of DVT/PE. Is not on any anticoagulation. He denies any associated chest pain with any of this. He is not able to lie flat as this does aggravate his symptoms as well. He denies any abdominal pain or nausea/vomiting. Past Medical History - Allergies and Home Meds Allergies/Adverse Reactions: Allergies varenicline [From Chantix] Adverse Reaction (Verified 06/28/20 10:18) bad dreams, visions Primary Care Physician: Genaro Toure MD [Primary Care Provider] - Past Medical History: - - CAD, CVA, non-small cell lung cancer with metastasis, COPD, hypothyroidism, hyperlipidemia Smoking Status: Former smoker Review of Systems All systems negative except as indicated General: Denies: Chills, Fever, Sweats Eyes: Denies: Visual changes - bilaterally, Diplopia ENT: Denies: Rhinorrhea, Sore throat Cardiovascular: Denies: Chest pain, Palpitations Respiratory: Reports: Dyspnea, Cough, Dyspnea on exertion. Denies: Sputum Gastrointestinal: Denies: Abdominal pain, Nausea, Vomiting, Diarrhea, Melena, Hematochezia Genitourinary: Denies: Dysuria, Hematuria, Frequency Musculoskeletal: Denies: Back pain, Extremity Pain Skin: Denies: Rash, Wounds Neurological: Denies: Headache, Weakness, Numbness Physical Exam Vital Signs/Narrative: Vital Signs Temp Pulse Resp BP Pulse Ox 06/28/20 10:10 94 06/28/20 09:57 97.6 F L 74 18 142/83 H 98 General: Well nourished, Well developed, No Acute Distress Head: Normocephalic, Atraumatic Eyes: Perrl, EOMI ENT: Moist mucous membranes, No rhinorrhea Neck: Supple, Nontender Cardiovascular: Regular rate, Regular rhythm, Murmur Respiratory: No distress, Chest nontender, Rales, Rhonchi Abdomen: Soft, Nontender, Nondistended, Normal bowel sounds Back: Nontender, Normal Inspection Extremities: Nontender. Negative for: Edema, Calf Tenderness Skin: Normal color, No rash Neurological: Alert, Oriented x3, Cranial nerves II-XII grossly intact, Normal Strength, Normal Sensation Psychological: Normal affect, Normal Mood Diagnostic/Tx/Re-eval - EKG Initial EKG Interpretation: - - Rate of 75 bpm and normal sinus rhythm. Normal intervals. Normal axis. No ST elevations or depressions appreciated. Has T wave flattening. No prior EKG for comparison. - Medical Decision Making Patient presents to the ED for shortness of breath. He had an outpatient work-up by his oncologist. He has known small cell lung cancer with metastasis. He was found to have bilateral pleural effusions, groundglass opacity, lung mass that remains unchanged as well as a pericardial effusion. I did do a [id number] ultrasound which still showed fluid around the pericardium. EKG, chest x-ray basic lab work being obtained. Currently satting well but does have mild increased work of breathing. Coronavirus test also being obtained. I did call [facility] and got an accepting doctor unfortunately we did have to wait for a bed to become available. During patient's ED stay he did convert to a atrial fibrillation with RVR rhythm. He was given a bolus of Cardizem and started on a Cardizem drip. The accepting team was notified and they are planning to admit him to the ICU now. Echocardiogram showed a moderate to large pericardial effusion with concern for the start of a pericardial tamponade. Patient's blood pressure otherwise has been stable with the arrhythmia. No indication for emergent bedside pericardiocentesis. He has complained of some mild chest discomfort with this though. His coronavirus test came back negative. Given the fact that his white blood cell count is elevated with the new infiltrates he was started on azithromycin and Rocephin. Patient made aware of all of these findings. EMS did arrive and patient transferred. Heart rate was still elevated but was pretty asymptomatic with the rate. - Critical Care Time Critical care time (excluding procedures): 30-74 minutes, Discussing w/Patient &/or Family/[employer], Discussing w/Consultants, Arranging Admission or Transfer, Performing Direct Patient Care at Bedside ED Disposition - Plan for ED Patient: Disposition: [facility] Diagnosis: Pericardial effusion, Pleural effusion, Pneumonia, Lung mass, Atrial fibrillation with RVR Referrals: Genaro Toure MD [Primary Care Provider] -
[2020-06-28 10:38] LABS: Absolute Neutrophil Count 16.7 X10^3/uL (2.0-7.7); Basophil# 0.04 X10^3/uL; Basophil% 0.2 % (0-1); Eosinophil# 0.01 X10^3/uL; Eosinophils% 0.1 % (0-5); Hemoglobin 10.3 g/dL (13.0-16.5); Lymphocyte % 4.8 % (19-41); Mean Corp Hgb Conc 30.3 g/dL (32-36); Mean Corpuscular Hgb 27.2 pg (27.0-32.0); Mean Corpuscular Volume 89.7 fL (80-94); Mean Platelet Vol. 9.2 fl (6.2-12.0); Monocyte# 0.82 X10^3/uL; Monocyte% 4.4 % (0-10); NRBC Flagged by Analyzer 0.3 % (0-5); Neutrophil # 16.68 X10^3/uL (2.7-7.7); Neutrophil % 89.1 % (47-70); Platelet Count 453 K/mm3 (150-450); RBC Distribution Width CV 18.6 % (11.6-14.6); RBC Distribution Width SD 57.1 fl (35.1-43.9); Red Blood Count 3.79 M/mm3 (4.6-6.2); White Blood Count 18.7 K/mm3 (4.4-11.0)
--- NOTE | 2020-06-28 10:40 | RAD_ITS ---
STUDY: X-RAY CHEST REASON FOR EXAM: Male, 64 years old. SEVERE SOB STARTING THIS WEEKEND. PT HAS HX OF LUNG CA- NON SMALL CELL CARCINOMA, LAST CHEMO LAST WEEK. COPD TECHNIQUE: Single AP portable view of the chest. COMPARISON: Comparison is made with prior study dated 08/29/2019. FINDINGS: EKG electrodes are seen. Persistent volume loss and soft tissue density in the left lung apex. This measures 6.4 cm x 8 cm. There now is evidence of a small left pleural effusion with left basilar infiltrate. There is mild cardiac enlargement. There is widening of the superior mediastinum most likely secondary to adenopathy. Normal visualized pulmonary arteries. Normal visualized aortic arch and descending thoracic aorta. Normal visualized thoracic spine. Normal visualized ribs, clavicles, and shoulders. There is no demonstrated abnormality of the visualized soft tissue structures of the upper abdomen. RAD/Chest 1 View (Portable) IMPRESSION: Stable opacity/mass in the left lung apex. New left pleural effusion with left basilar infiltration. Electronically Signed: Lasha Bernal, at 11:20 EDT , Service support ,
[2020-06-28 10:45] LABS: Anion Gap 6 (5-15); BUN 32 mg/dL (7-18); BUN/Creat Ratio 30.2 RATIO (10-20); Calcium,Total 10.3 mg/dL (8.5-10.1); Chloride 107 mmol/L (98-107); Creatinine, Serum 1.06 mg/dL (0.70-1.30); EST Glomerular Filtration Rate 74 mL/min (>60); Est Glom Filt Rate - Afr Amer 90 mL/min (>60); Estimated Creatinine Clearance 78.52 ml/min; Glucose 138 mg/dL (74-106); Magnesium 1.9 mg/dL (1.6-2.6); Potassium 4.2 mmol/L (3.5-5.1); Sodium Level 138 mmol/L (136-145)
--- NOTE | 2020-06-28 10:48 | NURSING ---
CALLED [facility], TALKED TO KP, FAXED FACESHEET
--- NOTE | 2020-06-28 11:08 | ECHOL_ITS ---
Reason For Study: Pericardial effusion Procedure This was a limited 2D transthoracic echocardiogram. The study was technically difficult. Limited views were obtained. Exam performed portable in ED. Left Ventricle Based upon the 2D echocardiographic views obtained there appears to be grossly normal left ventricular size, wall motion, and systolic function. The estimated ejection fraction is 55 %. Right Ventricle Normal RV size. Normal systolic function. Atria Normal left atrium. Normal right atrium. Mitral Valve There is no mitral annular calcification. Normal mitral valve. Tricuspid Valve Normal tricuspid valve. Aortic Valve The aortic valve is not well visualized. Pulmonic Valve The pulmonic valve is not well visualized. Great Vessels Normal sized aortic root. Pericardium/Pleural Moderate to large circumferential pericardial effusion. Echocardiographic findings concerning for early cardiac tamponade physiology. MMode/2D Measurements & Calculations Ao root diam: 3.7 cm Interpretation Summary The study was technically difficult. Limited views were obtained. Based upon the 2D echocardiographic views obtained there appears to be grossly normal left ventricular size, wall motion, and systolic function. The estimated ejection fraction is 55 %. Moderate to large circumferential pericardial effusion. Echocardiographic findings concerning for early cardiac tamponade physiology. Comment: Echocardiographic images suggest an extracardiac mass lesion (approximately 4.7 cm x 6.3 cm). Ordering Physician: Kian Leahy Referring Physician: MD Mesfin Genaro Performed By: Deidre Lynn, PRUDENCE
--- NOTE | 2020-06-28 14:48 | NURSING ---
[facility] ROOM [id number] NURSE TO NURSE [phone]
[2020-06-28] MEDS: dilTIAZem 25 MG/5 ML Vial 20 MG IV BOLUS (14:55)
--- NOTE | 2020-06-28 15:02 | NURSING ---
CALLED PHYSICANS, ETA IS 45 MIN
--- NOTE | 2020-06-28 15:07 | EKG12_ITS ---
Test Reason : SVT Blood Pressure : / mmHG Vent. Rate : 155 BPM Atrial Rate : 277 BPM P-R Int : 000 ms QRS Dur : 096 ms QT Int : 302 ms P-R-T Axes : 000 062 232 degrees QTc Int : 485 ms Atrial flutter with variable A-V block ST & T wave abnormality, consider inferolateral ischemia Abnormal ECG Confirmed by TERRENCE SANCHEZ, LAKESHA ([id number]), editor in chief newspaper GILES WHYTE ([id number]) on 06/30/2020 10:52:23 AM Referred By: KAYLA Confirmed By:LAKESHA OCAMPO MD
--- NOTE | 2020-06-28 16:22 | NURSING ---
NEW ROOM AT [place] [id number] NURSE TO NURSE [phone]
== END 2020-06-28 17:05 | disposition short-term general hospital (02) ==
PROVIDERS: Emergency Provider Emergency Medicine; PCP Family Medicine
DX: I31.3 Pericardial effusion (noninflammatory) (principal); I48.91 Unspecified atrial fibrillation; J18.9 Pneumonia, unspecified organism; J44.0 Chronic obstructive pulmonary disease with (acute) lower respiratory infection; J90 Pleural effusion, not elsewhere classified; E03.9 Hypothyroidism, unspecified; I25.10 Atherosclerotic heart disease of native coronary artery without angina pectoris; E78.5 Hyperlipidemia, unspecified; Z87.891 Personal history of nicotine dependence; Z86.73 Personal history of transient ischemic attack (TIA), and cerebral infarction without residual deficits; Z79.899 Other long term (current) drug therapy; Z79.51 Long term (current) use of inhaled steroids; Z79.52 Long term (current) use of systemic steroids; C34.90 Malignant neoplasm of unspecified part of unspecified bronchus or lung; C79.9 Secondary malignant neoplasm of unspecified site
CPT/HCPCS: 71045; 80048; 83735; 84484; 85025; 87635; 93005; 93308; 96360; 96365; 96367; 99285; C9803; J7030; A4216; J0696; U0003